=== PATIENT | female | born 2000 | race Caucasian/White ===

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

== ENCOUNTER 2023-02-27 02:31 | Emergency (ER) | payer OTHER, SELFPAY ==
[2023-02-27 02:51] VITALS: BP 104/74; PULSE 82; RESP 15; TEMP 36.6; O2SAT 98
[2023-02-27 03:12] LABS: Basophils Percent Auto 0.3 % (0.2-1.2); Eosinophils Percent Auto 0.1 % (0-4.4); Hematocrit 41.8 % (37.0-47.0); Hemoglobin 13.7 g/dL (12.0-15.0); Immature Granulocyte Absolute 0.02 K/mm3 (0.00-0.031); Immature Granulocyte Percent A 0.3 % (0-0.5); Lymphocytes Absolute Auto 1.58 K/mm3 (0.9-3.2); Lymphocytes Percent Auto 21.5 % (18.3-44.2); Mean Corpuscular HGB Conc 32.8 g/dl (32-36); Mean Corpuscular Hemoglobin 28.5 pg (26-34); Mean Corpuscular Volume 87.1 fl (80-100); Mean Platelet Volume 9.3 fl (7.4-10.4); Monocytes Absolute Auto 0.3 K/mm3 (0.1-0.6); Monocytes Percent Auto 4.6 % (2.6-8.5); Neutrophils Absolute Auto 5.4 K/mm3 (1.3-6.7); Neutrophils Percent Auto 73.2 % (45.5-73.1); Platelet Count Result 260 k/mm3 (150-375); Red Cell Distribution Width 12.1 % (11.5-14.5); White Blood Count 7.4 K/mm3 (4.5-10.0)
[2023-02-27 03:24] LABS: Ethanol < 10 mg/dL (<10)
[2023-02-27 03:27] LABS: Alanine Aminotransferase 30 U/L (6-35); Albumin Level 4.6 g/dL (3.5-5.1); Alkaline Phosphatase 75 U/L (38-126); Anion Gap 10 mmol/L (8-16); Aspartate Amino Transferase 36 U/L (14-36); Bilirubin,Total 0.5 mg/dL (0.2-1.3); Blood Urea Nitrogen 18 mg/dL (7-17); Calcium 8.8 mg/dL (8.4-10.2); Carbon Dioxide 30 mmol/L (22-30); Chloride 101 mmol/L (98-107); Estimated CRCL calculation 106 ml/min; Estimated Glomerular Filt Rate > 60; Glucose 130 mg/dL (65-110); Potassium 4.5 mmol/L (3.4-5.0); Sodium 141 mmol/L (137-145)
[2023-02-27 03:40] LABS: Appearance Urine Clear (Clear); Bacteria Urine 2+ /hpf; Bilirubin Urine Negative (Negative); Blood Urine Negative (Negative); Color Urine Yellow (Yellow); Glucose Urine UA Negative (Negative); Ketones Urine Negative (Negative); Leukocyte Esterase Ur Trace LEU/UL (Negative); Nitrate Urine Negative (Negative); Non Pathogenic Casts 0-2; Protein Urine Trace mg/dL (Negative); RBC Urine 0-2 /hpf (0-2); Specific Grav Ur 1.022 (1.001-1.035); Squamous Epithelial Cell Urine Few /hpf (Few)
[2023-02-27 03:42] LABS: Add Urine Microscopic? YES
[2023-02-27 03:49] LABS: Amphetamine Screen Urine Negative (Negative); Barbiturate Screen Urine Negative (Negative); Benzodiazepines Screen Urine Negative (Negative); Cannabinoid Screen Urine Negative (Negative); Cocaine Screen Urine Negative (Negative); Methadone Screen Urine Negative (Negative); Opiate Screen Urine Positive (Negative); Phencyclidine Screen Urine Negative (Negative)
[2023-02-27] MEDS: ONDANSETRON HCL ODT 4 MG TABLET PO (04:11)
[2023-02-27] MEDS: FAMOTIDINE 20 MG TABLET PO (04:11)
[2023-02-27 04:12] VITALS: BP 101/74; PULSE 92; RESP 16; O2SAT 98
--- NOTE | 2023-02-27 05:20 | ED.GENADULT ---
HPI - General Adult General Chief complaint: Psychiatric Symptoms Stated complaint: vomiting Time Seen by Provider: 02/27/23 03:40 History of Present Illness HPI narrative: Patient presents to the emergency department from home after drinking a pint of rum. States she has epigastric discomfort nausea and vomiting. She does not feel well. When asked to triage if she was suicidal she answered yes. Patient states she does not feel that way anymore. Denies history of suicidal attempts. Has engaged in cutting for stress relief in the past. Related Data Home Medications Medication Instructions Recorded Confirmed norethindrone 1 mg-ethinyl tablet 03/09/20 estradiol 10 mcg (24)-iron 10 mcg(2) tablet (Lo Loestrin Fe) spironolactone 100 mg tablet 03/09/20 Allergies Allergy/AdvReac Type Severity Reaction Status Date / Time Sulfa (Sulfonamide Allergy Mild Other Verified 02/27/23 02:55 Antibiotics) Review of Systems Review of Systems: CONSTITUTIONAL: Denies fever, chills, or sweats. EYES: Denies visual changes, redness, or discharge. ENT: Denies rhinorrhea, congestion, sore throat, or otalgia. CARDIOVASCULAR: Denies chest pain, palpitations, or edema. RESPIRATORY: Denies cough or dyspnea. GASTROINTESTINAL: Denies diarrhea. Positive for upper abdominal discomfort and vomiting GENITOURINARY: Denies dysuria or hematuria. SKIN: Denies rash or itching. MUSCULOSKELETAL: Denies back pain, joint pain, or myalgia. NEUROLOGIC: Denies headache, numbness, or weakness. PSYCHIATRIC: Denies anxiety or depression. Course Course Emergency Course: Upon reevaluation of the patient. She is feeling much better. Continues to deny any thoughts of self-harm. She is tired and would like to go home. Will DC Vital Signs Vital signs: Vital Signs Temperature 36.6 C 02/27/23 02:51 Pulse Rate 82 02/27/23 02:51 Respiratory Rate 15 02/27/23 02:51 Blood Pressure 104/74 02/27/23 02:51 Pulse Oximetry 98 02/27/23 02:51 Oxygen Delivery Room Air 02/27/23 02:51 Temperature 36.6 C 02/27/23 02:51 Pulse Rate 92 02/27/23 04:12 Respiratory Rate 16 02/27/23 04:12 Blood Pressure 101/74 02/27/23 04:12 Pulse Oximetry 98 02/27/23 04:12 Oxygen Delivery Room Air 02/27/23 02:51 Medical Decision Making Vital Signs Vital Signs: Vital Signs Temperature 36.6 C 02/27/23 02:51 Pulse Rate 82 02/27/23 02:51 Respiratory Rate 15 02/27/23 02:51 Blood Pressure 104/74 02/27/23 02:51 Pulse Oximetry 98 02/27/23 02:51 Oxygen Delivery Room Air 02/27/23 02:51 Temperature 36.6 C 02/27/23 02:51 Pulse Rate 92 02/27/23 04:12 Respiratory Rate 16 02/27/23 04:12 Blood Pressure 101/74 02/27/23 04:12 Pulse Oximetry 98 02/27/23 04:12 Oxygen Delivery Room Air 02/27/23 02:51 Lab Data 02/27/23 03:03 02/27/23 03:03 Labs: Lab Results 02/27/23 02/27/23 Range/Units 03:03 03:15 WBC 7.4 (4.5-10.0) K/mm3 RBC 4.80 (4.2-5.4) M/mm3 Hgb 13.7 (12.0-15.0) g/dL Hct 41.8 (37.0-47.0) % MCV 87.1 (80-100) fl MCH 28.5 (26-34) pg MCHC 32.8 (32-36) g/dl RDW 12.1 (11.5-14.5) % Plt Count 260 (150-375) k/mm3 MPV 9.3 (7.4-10.4) fl Immature Gran % (Auto) 0.3 (0-0.5) % Neut % (Auto) 73.2 H (45.5-73.1) % Lymph % (Auto) 21.5 (18.3-44.2) % Baldwin % (Auto) 4.6 (2.6-8.5) % Eos % (Auto) 0.1 (0-4.4) % Baso % (Auto) 0.3 (0.2-1.2) % Lymph # (Auto) 1.58 (0.9-3.2) K/mm3 Baldwin # (Auto) 0.3 (0.1-0.6) K/mm3 Eos # (Auto) 0.0 (0-0.3) K/mm3 Baso # (Auto) 0.0 (0.0-0.1) K/mm3 Abs Immat Gran (auto) 0.02 (0.00-0.031) K/mm3 Absolute Neuts (auto) 5.4 (1.3-6.7) K/mm3 Absolute Nucleated RBC 0.0 (0.0-0.012) K/mm3 Nucleated RBC % 0.0 (0.0-0.2) % Sodium 141 (137-145) mmol/L Potassium 4.5 (3.4-5.0) mmol/L Chloride 101 (98-107) mmol/L Carbon Dioxide 30 (22-30) mmol/L Anion
[2023-02-27 05:45] VITALS: BP 107/77; PULSE 84; RESP 16; O2SAT 98
== END 2023-02-27 05:46 | disposition home or self-care (01) ==
PROVIDERS: Emergency Provider Emergency Medicine
DX: R11.2 Nausea with vomiting, unspecified (principal); R10.9 Unspecified abdominal pain
CPT/HCPCS: 36415; 80053; 80307; 81001; 81025; 84443; 85025; 87086; 99283; A9270